=== PATIENT | female | born 1975 | race Caucasian/White ===

== ENCOUNTER 2016-07-24 19:29 | Observation (INO) ==
--- NOTE | 2016-07-24 19:49 | Emergency Department Note ---
Disposition Clinical Impression: Chest pain Disposition: Admitted As Inpatient Condition: Good Instructions: Chest Pain (ED) Referrals: Francia Velazco CNP [Primary Care Provider] - Forms: ED Satisfaction Letter Time of Disposition: 20:45 Chest Pain HPI - General Chief Complaint: ED Chest Pain Stated Complaint: chest pain at pacemaker site Source: patient Limitations: no limitations Vital Signs Reviewed: Yes Nursing Notes Reviewed: Yes - History of Present Illness HPI Narrative: Patient is 40-year-old female who presents with left arm numbness since 3 PM. She arrives just before 8 PM. She called her maintenance trainer at 3 PM he said go to the ER. SHe does have a pacemaker. She developed and has chest pain around her pacemaker was side. It does not radiate. Today the numbness returned at 3 PM. Patient states she had intermittent chest pain beginning New Year' Gina. Then today she had the development of the chest pain in the left arm numbness. Patient denies chest pain at present. Patient has a pacemaker due to passing out from a low heart rate. she denies cardiac stent she denies heart attack history. Pt complaint: chest pain Severity scale (1-10): 7 - Related Data Home Medications Medication Instructions Recorded Confirmed Albuterol Sulfate [Proair 2 puff IH Q6H PRN 07/29/15 07/24/16 Respiclick] Cholecalciferol (Vitamin D3) 1,000 unit PO DAILY 07/29/15 07/24/16 [Vitamin D] Furosemide [Lasix] 40 mg PO DAILY 07/29/15 07/24/16 Insulin Glargine [Lantus] 40 unit PO HS 07/29/15 07/24/16 Metformin [Glucophage] 1,000 mg PO BIDWM 07/29/15 07/24/16 Mometasone/Formoterol [Dulera 100 2 puff IH BID 07/29/15 07/24/16 Mcg/5 Mcg Inhaler] Omeprazole [PriLOSEC] 40 mg PO DAILY 07/29/15 07/24/16 Ropinirole [Requip] 2 mg PO HS 07/29/15 07/24/16 Ascorbic Acid [Vitamin C] 500 mg PO DAILY 03/16/16 07/24/16 Lisinopril/Hydrochlorothiazide 1 each PO DAILY 03/16/16 07/24/16 [Zestoretic 20-25 mg Tablet] Metoprolol [Lopressor] 75 mg PO BID 03/16/16 07/24/16 Ondansetron ODT [Zofran ODT] 4 mg SL Q8HR PRN 03/16/16 07/24/16 Oxygen 2 l NS HS 03/16/16 07/24/16 Vits #93/Iron Fum/FA 1 each PO DAILY 03/16/16 07/24/16 [ Formula Tablet] Vitamin B Complex 1 each PO DAILY 03/16/16 07/24/16 Allergies Allergy/AdvReac Type Severity Reaction Status Date / Time No Known Allergies Allergy Verified 03/16/16 07:42 All systems ED: reviewed and negative except as stated. Chest Pain PMH - Past Medical History Medical history: Reports: asthma, diabetes, hypertension, other Surgical history: Reports: cholecystectomy Psychiatric history: Reports: anxiety, bipolar, depression, panic disorder, schizophrenia RN CLINICAL history: Reports: bilateral tubal ligation - Social History Smoking Status: Never smoker Alcohol use: Reports: none Drug use: Reports: none Physical Exam - General Limitations: no limitations General appearance: alert - Head Head exam: atraumatic - Eye Eye exam: Present: normal appearance - ENT ENT exam: normal exam - Neck Neck exam: Present: normal inspection - Chest Chest inspection: Present: normal inspection, other (Left upper chest wall pace maker location looks normal) - Respiratory Respiratory exam: Present: normal lung sounds bilaterally - Cardiovascular Cardiovascular exam: Present: regular rate, normal rhythm - Abdominal Exam Abdominal exam: Present: soft, Non-Tender - Extremities Exam Extremities exam: Present: normal inspection - Expanded Lower Extremity Exam Hip/Pelvis exam: Present: normal inspection Gait: observed and normal - Back Exam Back exam: Present: normal inspection - Neurological Exam Neurological exam: Present: alert, oriented X3, CN II-XII intact - Psychiatric Psychiatric exam: Present: normal affect, normal mood - Skin Skin exam: Present: warm, dry Course Vital Signs Temperature 97.1 F L 07/24/16 19:31 Pulse Rate 79 07/24/16 19:31 Respiratory Rate 20 07/24/16 19:31 Blood Pressure 139/93 07/24/16 19:31 O2 Sat by Pulse Oximetry 98 07/24/16 19:31 Temperature 98.1 F 07/24/16 19:48 Pulse Rate 76 07/24/16 20:24 Respiratory Rate 20 07/24/16 20:24 Blood Pressure 153/76 07/24/16 20:24 O2 Sat by Pulse Oximetry 98 07/24/16 20:24 Oxygen Delivery Oxygen Delivery Room Air Chest Pain - MDM Narrative Medical decision making narrative: Differential: Cardiac event versus stress versus stroke - Lab Data Result diagrams: 07/24/16 19:47 07/24/16 19:47 Lab Results 07/24/16 07/24/16 07/24/16 Range/Units 19:47 19:47 19:47 WBC 12.9 H (4.3-11.1) K/mcL RBC 4.57 (3.82-4.97) M/mcL Hgb 13.4 (11.5-15.4) g/dL Hct 40.4 (35.3-44.9) % MCV 88.4 (83.0-100.0) fL MCH 29.3 (28.0-33.3) pg MCHC 33.2 (31.6-35.5) g/dL RDW 14.4 (11.5-14.5) % Plt Count 290 (140-400) K/mcL MPV 11.6 (9.4-12.4) fL Immature Gran % 0.4 (0-4) % Seg Neutrophils % 65.4 % Lymphocytes % 25.7 % Monocytes % 7.0 % Eosinophils % 1.0 % Basophils % 0.5 % Neutrophils # 8.4 (1.6-8.9) K/mcL Lymphocytes # 3.3 (0.6-4.6) K/mcL Monocytes # 0.9 (0.0-1.3) K/mcL Eosinophils # 0.1 (0.0-0.6) K/mcL Basophils # 0.1 (0.0-0.2) K/mcL PT 12.4 H (9.4-12.1) Seconds INR 1.1 APTT 33.4 (26.0-36.0) Seconds Sodium (136-145) mEq/L Potassium (3.5-4.5) mEq/L Chloride (98-109) mEq/L Carbon Dioxide (19-29) mEq/L BUN (7-20) mg/dL Creatinine (0.57-1.11) mg/dL Est GFR ( Amer) (> 60) Est GFR (Non-Af Amer) (> 60) BUN/Creatinine Ratio (6-26) Glucose (70-99) mg/dL Calculated Osmolality (280-300) Calcium (8.6-10.8) mg/dL Total Bilirubin (0.2-1.2) mg/dL AST (5-34) Units/L ALT (0-55) Units/L Alkaline Phosphatase (38-126) Units/L Troponin I 0.00 (0-0.03) ng/mL Serum Total Protein (6.0-8.3) g/dL Albumin (3.5-5.0) g/dL Globulin (2.4-3.5) g/dL Albumin/Globulin Ratio (1.1-2.2) Urine Color (Yellow) Urine Clarity (Clear) Urine pH (5.0-8.0) pH Units Ur Specific Stanley (1.010-1.025) Urine Protein (Neg-Trace) mg/dL Urine Glucose (UA) (Normal) mg/dL Urine Ketones (Negative) mg/dL Urine Blood (Negative) Urine Nitrite (Negative) Urine Bilirubin (Negative) Urine Urobilinogen (Normal) mg/dL Ur Leukocyte Esterase (Negative) 07/24/16 07/24/16 Range/Units 19:47 20:31 WBC (4.3-11.1) K/mcL RBC (3.82-4.97) M/mcL Hgb (11.5-15.4) g/dL Hct (35.3-44.9) % MCV (83.0-100.0) fL MCH (28.0-33.3) pg MCHC (31.6-35.5) g/dL RDW (11.5-14.5) % Plt Count (140-400) K/mcL MPV (9.4-12.4) fL Immature Gran % (0-4) % Seg Neutrophils % % Lymphocytes % % Monocytes % % Eosinophils % % Basophils % % Neutrophils # (1.6-8.9) K/mcL Lymphocytes # (0.6-4.6) K/mcL Monocytes # (0.0-1.3) K/mcL Eosinophils # (0.0-0.6) K/mcL Basophils # (0.0-0.2) K/mcL PT (9.4-12.1) Seconds INR APTT (26.0-36.0) Seconds Sodium 144 (136-145) mEq/L Potassium 4.1 (3.5-4.5) mEq/L Chloride 107 (98-109) mEq/L Carbon Dioxide 27 (19-29) mEq/L BUN 9 (7-20) mg/dL Creatinine 0.79 (0.57-1.11) mg/dL Est GFR ( Amer) > 60 (> 60) Est GFR (Non-Af Amer) > 60 (> 60) BUN/Creatinine Ratio 11 (6-26) Glucose 119 H (70-99) mg/dL Calculated Osmolality 298 (280-300) Calcium 9.7 (8.6-10.8) mg/dL Total Bilirubin 0.5 (0.2-1.2) mg/dL AST 16 (5-34) Units/L ALT 24 (0-55) Units/L Alkaline Phosphatase 76 (38-126) Units/L Troponin I (0-0.03) ng/mL Serum Total Protein 7.2 (6.0-8.3) g/dL Albumin 3.4 L (3.5-5.0) g/dL Globulin 3.8 H (2.4-3.5) g/dL Albumin/Globulin Ratio 0.9 L (1.1-2.2) Urine Color Yellow (Yellow) Urine Clarity Slightly Cloudy A (Clear) Urine pH 5.5 (5.0-8.0) pH Units Ur Specific Stanley 1.025 (1.010-1.025) Urine Protein Negative (Neg-Trace) mg/dL Urine Glucose (UA) Normal (Normal) mg/dL Urine Ketones Trace H (Negative) mg/dL Urine Blood Trace-intact H (Negative) Urine Nitrite Negative (Negative) Urine Bilirubin Small H (Negative) Urine Urobilinogen Normal (Normal) mg/dL Ur Leukocyte Esterase Moderate H (Negative) - Radiology Data Radiology results reviewed: Yes I reviewed the patient's radiology results. ITS Impressions Chest X-Ray 07/24/16 19:36 IMPRESSION: No acute finding in the chest. D/ / Mina Napoles MD / Mina Napoles MD Interpreting Provider: Mina Napoles MD Head CT 07/24/16 19:36 IMPRESSION: No acute intracranial abnormality. Trace mucosal thickening is seen in sphenoid D/ / Akbar Busch MD / Akbar Busch MD Interpreting Provider: Akbar Busch MD - EKG Data EKG attestation: Yes I reviewed and interpreted this EKG. EKG shows normal: sinus rhythm Rate: normal Rhythm: NSR Interpretation: no acute changes, normal EKG
[2016-07-24] MEDS ORDERED: Aspirin 81 MG TAB.CHEW PO STA (19:53)
[2016-07-24] MEDS ORDERED: Aspirin 81 MG TAB.CHEW ONE (19:55)
[2016-07-24 19:57] LABS: Basophils # 0.1 K/mcL (0.0-0.2); Basophils % 0.5 %; Eosinophils # 0.1 K/mcL (0.0-0.6); Hematocrit 40.4 % (35.3-44.9); Hemoglobin 13.4 g/dL (11.5-15.4); Immature Granulocytes % 0.4 % (0-4); Lymphocytes # 3.3 K/mcL (0.6-4.6); Lymphocytes % 25.7 %; Mean Corpuscular HGB Conc 33.2 g/dL (31.6-35.5); Mean Corpuscular Hemoglobin 29.3 pg (28.0-33.3); Mean Corpuscular Volume 88.4 fL (83.0-100.0); Mean Platelet Volume 11.6 fL (9.4-12.4); Monocytes # 0.9 K/mcL (0.0-1.3); Neutrophils # 8.4 K/mcL (1.6-8.9); Platelet Count 290 K/mcL (140-400); Red Blood Count 4.57 M/mcL (3.82-4.97); Red Cell Distribution Width 14.4 % (11.5-14.5); Segmented Neutrophils % 65.4 %
[2016-07-24 20:04] LABS: INR 1.1; Prothrombin Time 12.4 Seconds (9.4-12.1)
[2016-07-24 20:06] LABS: Activated Partial Thrombo Time 33.4 Seconds (26.0-36.0)
[2016-07-24 20:16] LABS: Alanine Aminotransferase 24 Units/L (0-55); Albumin 3.4 g/dL (3.5-5.0); Albumin/Globulin Ratio 0.9 (1.1-2.2); Alkaline Phosphatase 76 Units/L (38-126); Aspartate Amino Transferase 16 Units/L (5-34); BUN/Creatinine Ratio 11 (6-26); Bilirubin,Total 0.5 mg/dL (0.2-1.2); Blood Urea Nitrogen 9 mg/dL (7-20); Calcium 9.7 mg/dL (8.6-10.8); Carbon Dioxide 27 mEq/L (19-29); Chloride 107 mEq/L (98-109); Globulin 3.8 g/dL (2.4-3.5); Glucose 119 mg/dL (70-99); Osmolality,Calculated 298 (280-300); Potassium 4.1 mEq/L (3.5-4.5); Sodium 144 mEq/L (136-145); Total Protein 7.2 g/dL (6.0-8.3); eGFR For African Americans > 60 (> 60); eGFR For Non-African Americans > 60 (> 60)
[2016-07-24 20:38] LABS: Bilirubin,Urine Small (Negative); Blood,Urine Trace-intact (Negative); Clarity,Urine Slightly Cloudy (Clear); Color,Urine Yellow (Yellow); Glucose,Urine (UA) Normal (Normal); Ketones,Urine Trace mg/dL (Negative); Leukocyte Esterase,Urine Moderate (Negative); Nitrite,Urine Negative (Negative); PH,Urine 5.5 pH Units (5.0-8.0); Protein,Urine Negative (Neg-Trace); Specific Gravity,Urine 1.025 (1.010-1.025); Urobilinogen,Urine Normal (Normal)
[2016-07-24] MEDS ORDERED: CefTRIAXone 1,000 MG in D5% in Water (Mini-Bag+) 100 ML IVPB STA (20:42)
[2016-07-24 20:47] LABS: Bacteria,Urine Moderate per hpf (None-Few); Granular Casts,Urine Few per lpf (None Seen); Mucus,Urine Moderate (Few); Squamous Epithelial Cell,Urine Moderate per lpf (None-Few); WBC,Urine 15-30 per hpf (0-3)
[2016-07-24] MEDS ORDERED: NON-FORMULARY MEDICATION 1 EACH EACH (Oxygen [Oxygen] 2 L) NS SCH (21:37)
[2016-07-24] MEDS ORDERED: Ondansetron ODT 4 MG TAB.RAPDIS SL PRN (21:37)
[2016-07-24] MEDS ORDERED: NON-FORMULARY MEDICATION 1 EACH EACH (Insulin Glargine [Lantus] 40 UNIT) PO SCH (21:37)
[2016-07-24] MEDS ORDERED: Insulin DETEMIR 100 UNIT/ML X5UNITS SQ SCH (22:15)
[2016-07-24] MEDS: Ipratropium/Albuterol Neb 3 ML IH SCH (23:30)
[2016-07-25] MEDS: Ipratropium/Albuterol Neb 3 ML IH SCH ×2 (04:27→11:06)
[2016-07-25] MEDS ORDERED: *HR* Metformin 500 MG TABLET PO SCH (08:00)
[2016-07-25] MEDS ORDERED: Vitamin B Complex/Vit C/Vit E 1 EACH TABLET PO SCH (09:00)
[2016-07-25] MEDS ORDERED: Cholecalciferol (D-3) 1,000 UNIT TABLET PO SCH (09:00)
[2016-07-25] MEDS ORDERED: Furosemide 40 MG TABLET PO SCH (09:00)
[2016-07-25] MEDS ORDERED: Ascorbic Acid 500 MG TABLET PO SCH (09:00)
[2016-07-25] MEDS ORDERED: Prenatal Vit/FA 1 EACH TABLET PO SCH (09:00)
[2016-07-25 11:21] VITALS: BP 113/67
--- NOTE | 2016-07-25 12:06 | Electrocardiograph Report ---
[facility] Test Date: 2016-07-24 Pat Name: Nataliia Florentino Department: [id number] Room: [facility] Gender: F Spray I Painter: Braden rn : 1975 Requested By: Sam Garcia Order Number: [id number] Reading MD: Spencer Pierce MD Measurements Intervals Newman Rate: 78 P: 41 KS: 146 QRS: 37 QRSD: 97 T: 14 QT: 363 QTc: 396 Interpretive Statements SINUS RHYTHM Electronically Signed On 07-25-16 12:05:08 EST by Spencer Pierce MD
--- NOTE | 2016-07-25 12:35 | Internal Med History&Physical ---
Date of Encounter: 07/25/16 Time of Encounter: 12:15 Assessment and Plan (1) Chest pain Current visit: Yes Status: Acute Repeat cardiac enzymes were ordered to the emergency room. Further workup will be done as needed. Qualifiers: Chest pain type: unspecified Qualified Code(s): R07.9 - Chest pain, unspecified Internal Medicine - H&P: HPI Chief complaint: Chest discomfort and left arm numbness Admitted From: Home Plans for Post Hospital Care: Home History of present illness: Ms. Florentino is a 40 year old female who came to emergency room at the suggestion of her hospital unit coordinator after she called him reporting she had onset of sharp chest pain and left arm numbness approximately 3 PM while at leisure. She was evaluated in emergency room and admitted to [facility] for ongoing care needs. She states that left arm numbness has resolved. She reports still slight discomfort on her chest occasionally. She denies previous similar episodes of numbness or chest discomfort. Her cardiovascular history significant for hypertension. 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 She had syncopal episodes prior to the pacemaker placement which have resolved. She has had no DVT pulmonary embolus or heart failure. She does not get angina or angina equivalents on exertion. Past Med Surg Social Fam HX - Past Medical History Medical history: asthma, diabetes, hypertension, other Psychiatric history: anxiety, bipolar, depression, panic disorder, schizophrenia - Past Surgical History Surgical History: cholecystectomy, pacemaker - Social History Smoking Status: Former smoker Smokeless Tobacco Status: No Alcohol use: none Drug use: none - Family History Father Adopted: No Family Member Ethnicity: Non- Living Status: Age at : 50 Cause of : ND Hx Family Cardiac Disorders: Yes Internal Medicine - H&P: Meds Albuterol Sulfate [Proair Respiclick] 2 puff IH Q6H PRN 07/29/15 [History] Cholecalciferol (Vitamin D3) [Vitamin D] 1,000 unit PO DAILY 07/29/15 [History] Furosemide [Lasix] 40 mg PO DAILY 07/29/15 [History] Insulin Glargine [Lantus] 40 unit PO HS 07/29/15 [History] Metformin [Glucophage] 1,000 mg PO BIDWM 07/29/15 [History] Mometasone/Formoterol [Dulera 100 Mcg/5 Mcg Inhaler] 2 puff IH BID 07/29/15 [ History] Omeprazole [PriLOSEC] 40 mg PO DAILY 07/29/15 [History] Ropinirole [Requip] 2 mg PO HS 07/29/15 [History] Ascorbic Acid [Vitamin C] 500 mg PO DAILY 03/16/16 [History] Lisinopril/Hydrochlorothiazide [Zestoretic 20-25 mg Tablet] 1 each PO DAILY [History] Metoprolol [Lopressor] 75 mg PO BID 03/16/16 [History] Ondansetron ODT [Zofran ODT] 4 mg SL Q8HR PRN 03/16/16 [History] Oxygen 2 l NS HS 03/16/16 [History] Vits #93/Iron Fum/FA [ Formula Tablet] 1 each PO DAILY [History] Vitamin B Complex 1 each PO DAILY 03/16/16 [History] Allergies No Known Allergies Allergy (Verified 03/16/16 07:42) All Systems PM: A 10-system review of systems was performed and is negative for pertinent findings except as documented above in the HPI. Review of systems: Gen.: Her weight has decreased from 159.693 kg at the April 2014 hospitalization to 153.314 kg on admission Cardiovascular: As per history of present illness Respiratory: She smoked for 2 years in her 20s. She has a diagnosis of asthma. She has diagnosis of KATERINA and wears oxygen at bedtime does not use CPAP or BiPAP GI: She has had cholecystectomy and gastric bypass surgery 2008. She has GERD but no disorder of her liver or exocrine pancreas : No history of hematuria dysuria or kidney stones Neurologic: No history of large distribution strokes or seizures. Endocrine: She was diagnosed with DM at age 27. She has no known thyroid disease or hyperlipidemia Hematology/oncology: She denies blood disorders cancers or anemia Psychiatric: She has anxiety and depression. 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 - Constitutional Vitals: Temp Pulse Resp BP Pulse Ox 98.4 F 70 18 113/67 97 07/25/16 08:57 07/25/16 11:19 07/25/16 11:19 07/25/16 11:19 07/25/16 11:19 Exam: Gen.: She is well-developed obese female lying in bed who appears in no severe distress at present time. HEENT: Head is atraumatic and normocephalic. Eyes: EOMI. There is no scleral icterus. Mouth: Mucosa is moist. Neck: Supple and nontender. There is no thyromegaly or adenopathy noted. Heart: Regular without murmurs gallops or ectopics. Chest: She has mild tenderness in her left chest area but states "that is not the pain" on compression of the chest wall. Lungs: Clear to auscultation in all toscano Back: Straight without flank tenderness or presacral edema Abdomen: She has a large abdomen. It is soft and nontender to palpation. Extremities: There is no cyanosis edema or clubbing noted. Dorsalis pedis and posterior pulses are trace to 1+ palpable bilaterally. Neurologic: Mental status: She is talkative and a good historian. Cranial nerves: Smile is symmetric. Forehead wrinkles bilaterally. Tongue protrudes midline. EOMI. Motor: There is no pronator drift. Cerebellar: Finger to nose is intact bilaterally. Skin: Warm and dry Internal Med - H&P Results - Labs CBC & Chem 7: 07/24/16 19:47 07/24/16 19:47 Labs: Cardiac Enzymes 07/25/16 07/25/16 Range/Units 02:18 09:30 Troponin I 0.00 0.00 (0-0.03) ng/mL
--- NOTE | 2016-07-25 12:45 | Discharge Summary ---
Date of Encounter: 07/25/16 Time of Encounter: 12:15 - Discharge Diagnosis (1) Chest pain Priority: Primary Status: Acute Qualifiers: Chest pain type: unspecified Qualified Code(s): R07.9 - Chest pain, unspecified - Discharge Medications Prescriptions: Sulfamethoxazole/Trimeth DS [Bactrim DS] 1 each PO BID #6 tablet Home Medications: Albuterol Sulfate [Proair Respiclick] 2 puff IH Q6H PRN 07/29/15 [History] Cholecalciferol (Vitamin D3) [Vitamin D3] 1,000 unit PO DAILY 07/29/15 [History] Furosemide [Lasix] 40 mg PO DAILY 07/29/15 [History] Insulin Glargine [Lantus] 40 unit PO HS 07/29/15 [History] Metformin [Glucophage] 1,000 mg PO BIDWM 07/29/15 [History] Mometasone/Formoterol [Dulera 100 Mcg/5 Mcg Inhaler] 2 puff IH BID 07/29/15 [ History] Omeprazole [PriLOSEC] 40 mg PO DAILY 07/29/15 [History] Ropinirole [Requip] 2 mg PO HS 07/29/15 [History] Ascorbic Acid [Vitamin C] 500 mg PO DAILY 03/16/16 [History] Lisinopril/Hydrochlorothiazide [Zestoretic 20-25 mg Tablet] 1 each PO DAILY [History] Metoprolol [Lopressor] 75 mg PO BID 03/16/16 [History] Ondansetron ODT [Zofran ODT] 4 mg SL Q8HR PRN 03/16/16 [History] Oxygen 2 l NS HS 03/16/16 [History] Vits #93/Iron Fum/FA [ Formula Tablet] 1 each PO DAILY [History] Vitamin B Complex 1 each PO DAILY 03/16/16 [History] Sulfamethoxazole/Trimeth DS [Bactrim DS] 1 each PO BID #6 tablet 07/25/16 [Rx] Allergies/Adverse Reactions: Allergies No Known Allergies Allergy (Verified 03/16/16 07:42) Date of admission: 07/24/16 20:49 Primary care physician: Francia Velazco - Patient Status Disposition: Home, Self-Care Condition: Good Overall status at discharge: patient is progressing back to baseline - Discharge Instructions Follow Up With: Francia Velazco CNP [Primary Care Provider] - 1 week - Diet and Activity Activity: resume usual activities as tolerated Diet: advance to your usual diet Hospital course: Ms. Florentino is a 40 year old female who came to emergency room at the suggestion of her director of digital platforms after she called him reporting she had onset of sharp chest pain and left arm numbness approximately 3 PM while at leisure. She was evaluated in emergency room and admitted to [facility] for ongoing care needs. Initial orders were written by the emergency room physician. I saw her the afternoon of July 25 and performed the history and physical and discharge. Repeat cardiac enzymes showed no evidence of myocardial damage. When I saw her I did not think pain was likely to be of myocardial ischemic origin. Etiology of the pain was not determined with certainty. When I saw her she felt improved and stable for discharge home which I felt was reasonable. She will follow with her primary care provider within one week and follow director of digital platforms as directed. Her UA showed findings consistent with UTI. She will be given Septra DS twice a day for 3 days empirically. - Time Spent with Patient Total time spent providing and/or coordinating discharge services: - Constitutional Vitals: Temp Pulse Resp BP Pulse Ox 98.4 F 70 18 113/67 97 07/25/16 08:57 07/25/16 11:19 07/25/16 11:19 07/25/16 11:19 07/25/16 11:19
== END 2016-07-25 14:00 | disposition home or self-care (01) ==
LOC: EMEROOPIK 19:29 → INPPIK 19:29
PROVIDERS: ADMIT Internal Medicine; ATTEND Internal Medicine